=== PATIENT | female | born 1980 | race African-American/Black ===

== ENCOUNTER 2025-05-03 08:50 | Day surgery (SDC) | payer MEDICAID, SELFPAY ==
--- NOTE | 2025-04-30 07:00 | EKG_ITS ---
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
[2025-04-30 07:33] VITALS: BMI 34.3
[2025-04-30 08:38] LABS: Collection Type, Urine Clean Catch
[2025-04-30 08:59] LABS: Basophils # (Auto) 0.0 Thou/mm3 (0.0-0.2); Basophils % (Auto) 1 % (0-2.5); Eosinophils # (Auto) 0.1 Thou/mm3 (0.0-0.5); Eosinophils % (Auto) 3 % (0-10); Hematocrit 41.1 % (36.0-46.0); Hemoglobin 12.5 g/dL (12.0-16.0); Immature Granulocytes Auto 0.01 Thou/mm3 (0.00-0.00); Lymphocytes # (Auto) 1.5 Thou/mm3 (1.0-4.8); Lymphocytes % (Auto) 37 % (10-50); Mean Corpuscular HGB Conc 30.4 g/dl (31.0-37.0); Mean Corpuscular Hemoglobin 26.8 pg (25.0-35.0); Mean Corpuscular Volume 88 fL (80-100); Monocytes # (Auto) 0.5 Thou/mm3 (0.0-0.8); Monocytes % (Auto) 12 % (0-12); Neutrophils # (Auto) 1.9 Thou/mm3 (1.8-7.7); Neutrophils % (Auto) 47 % (37-80); Nucleated Red Blood Cell # 0.00 Thou/mm3 (0.00-0.00); Nucleated Red Blood Cell % 0 /100 WBC (0); Platelet Count 176 Thou/mm3 (140-440); RDW Standard Deviation 42.7 fL (36.4-46.3); Red Blood Count 4.67 Miln/mm3 (4.00-5.20); White Blood Count 4.0 Thou/mm3 (3.6-11.0)
[2025-04-30 09:01] LABS: Bacteria,Urine Rare; Bilirubin,Urine Negative (Negative); Blood,Urine 3+ (Negative); Glucose, Urine Negative (Negative); Ketones,Urine Negative (Negative); Leukocyte Esterase,Urine Negative (Negative); Nitrite,Urine Negative (Negative); PH,Urine 8.0 (5.0-7.0); Protein,Urine Trace (Neg - Trace); RBC,Urine 6 /hpf (0-3); Specific Gravity,Urine 1.022 (1.001-1.035); Squamous Epithelial Cell,Urine 15 /hpf (0-5); Urobilinogen,Urine Negative mg/dL (0.0-1.0); WBC,Urine 5 /hpf (0-5)
[2025-04-30 09:06] LABS: Partial Thromboplastin Time 27.3 Seconds (22.0-36.0)
[2025-04-30 09:15] LABS: Alanine Aminotransferase 8 U/L (10-49); Albumin, Serum 4.6 gm/dL (3.5-5.0); Albumin/Globulin Ratio 1.7 (1.2-2.2); Alkaline Phosphatase 61 U/L (46-116); Anion Gap 11 (7-16); Aspartate Amino Transferase 17 U/L (0-34); BUN/Creatinine Ratio 10 Ratio (12-20); Bilirubin,Total 1.2 mg/dL (0.3-1.2); Blood Urea Nitrogen 9 mg/dL (9-23); Calcium 9.5 mg/dL (8.3-10.6); Calcium (Corrected) 9.5 mg/dL (8.5-10.1); Carbon Dioxide 29.4 mMol/L (20.0-31.0); Chloride 102 mMol/L (98-107); Creatinine (Component) 0.9 mg/dL (0.6-1.3); Estimated Creatinine Clearance 71.5 mL/min (>60); Globulin 2.7 gm/dL (2.3-3.5); Glucose 104 mg/dL (74-106); Osmolality,Calculated 281 (275-295); Potassium 3.8 mMol/L (3.4-5.1); Sodium 142 mMol/L (136-145); Total Protein 7.3 gm/dL (5.7-8.2); eGFR > 60 See Note
[2025-04-30 09:18] LABS: Clarity,Urine Hazy (Clear/Hazy); Color,Urine Lt Yellow (Lt Yel-Yel)
[2025-05-03] VITALS (12 sets, daily range): BP systolic 95–131; BP diastolic 63–79; PULSE 62–88; RESP 12–20; TEMP 36.2–36.8; O2SAT 95–100
[2025-05-03] MEDS: RINGERS LACTATED 1000 ML 1,000 ML 60 ML IV (09:31)
--- NOTE | 2025-05-03 10:00 | SUR.PREOP ---
Patient expressed gratitude for prayer before their procedure.
--- NOTE | 2025-05-03 12:25 | SUR.PHASEI ---
1225 Patient arrived to recovery resting comfortably in [facility], on oxygen 6L via oxy mask with an oral airway and nasal airway in place, breathing unlabored, vital signs stable, dressing intact to abdomen; sutures, steri-strips, telfa, gauze, abd, medipore tape, abdominal binder, no bleeding noted, report received from Maynor GALLEGO and Dr. Mejia
--- NOTE | 2025-05-03 12:25 | ESOP_ITS ---
Date of Procedure 05/03/25 Pre Op Diagnosis Incarcerated umbilical hernia Post Op Diagnosis Same Procedure Repair of incarcerated umbilical hernia 15 cm x 7 cm with implantation of Ventrio ST oval patch and partial omentectomy on May 03, 2025 Findings This patient is a morbidly obese and she has a large ventral incarcerated hernia. The umbilical hernia contained omentum that required resection and lysis of adhesions. There is no other positive findings. Procedure Description Patient was examined in the preop area. Site and site were marked. Procedure was discussed with the patient in detail. The risk benefits alternatives were discussed with the patient and informed consent was obtained. The risks include bleeding infection recurrence of the hernia and anesthesia related risks. The patient was brought to the operating room and placed on the operating table in supine position. General anesthesia was administered in a satisfactory manner. IV antibiotics were given to the patient. Local anesthesia 0.25% Marcaine was used as an adjunct. Curvilinear vertical circumumbilical incision is made. This was deepened throug h the layers of skin subcutaneous tissue. The hernia sac was identified and was dissected around the umbilicus. Hernia sac was incised circumferentially, and the contents of the hernia sac were identified. There was omentum in the hernia sac, and this was adherent with the hernia sac and it is scarred down. Portion of the omentum was resected by suture ligation technique with resection of the scarred down omentum. Rest of the omentum was reduced. Lysis of adhesions was required to clear the adhesions on the peritoneal sides around the defect. Hernia sac was excised as specimen. The fascia is cleaned and then the defect is defined. I examined the fascia from the peritoneal side and there are no adhesions of the bowel or omentum. The defect measured 15 cm X 7 cm. It requires implantation of the 17 x [address] oval patch. The patch was implanted in the sublet position. The laps and instrument counts were obtained they are correct x 2 and then after that the patch is positioned underneath the defect. The patch was sutured circumferentially to the fascia with interrupted 0 Ethibond stitches of bringing the patches to the anterior abdominal wall. After completion of that the patch was irrigated with gentamicin solution. The hernia defect was then closed longitudinally with interrupted 0 Ethibond [id number] stitches incorporating the patch. The hemostasis was achieved and the defect was checked again and there is no fascial defect. The operative field is thoroughly irrigated with saline solution with gentamicin. The hernia sac toward the umbilical skin is trimmed. Umbilical skin is attached to the fascia with interrupted 3-0 Vicryl stitches so as to avoid floating umbilicus. After that subcutaneous tissue was approximated by 3- 0 Vicryl and skin by four 4-0 Monocryl subcuticular stitches. Steri-Strips are applied. Sterile dressing is applied. Patient tolerated the procedure very well. Complications none. Anesthesia GETA Drains None. Pathology / specimen Other (Umbilical hernia sac and omentum) Estimated Blood Loss 10 Condition Stable Disposition PACU Surgeon Ortiz Cronin MD Surgical Staff Operation Date: 05/03/25 11:15 Case Staff Anesthesiologist: Lui Mejia RNsocial studies teacher: Hina Davies surgical first assistant
[2025-05-03] MEDS: fentaNYL CIT INJ 50 mCg/ML AMP 2ML IVP (13:08)
--- NOTE | 2025-05-03 13:16 | SUR.PHASEII ---
1316 report given to Ester GALLEGO
--- NOTE | 2025-05-03 13:24 | SUR.PHASEI ---
Resting with eyes closed but responds to questions appropriately. Respirations even and unlabored. No c/o pain or discomfort. Abdominal binder in place C//D/I as well as dressing to mid abd.
--- NOTE | 2025-05-03 13:50 | SUR.PHASEII ---
1356 report received from Ester GALLEGO
--- NOTE | 2025-05-03 14:22 | SUR.PHASEII ---
1422 Patient meets discharge criteria from recovery, awake and talking with staff, breathing unlabored, vital signs stable, dressing intact; no bleeding noted, eating ice chips; denies nausea, denies pain at rest, discomfort with movement, assisted with dressing into her clothing by this keno writer / runner, discharge instructions given to patient and patients , signed discharge instructions. Patient given all her belongings prior to discharge, transported via wheelchair and left in a private vehicle.
== END 2025-05-03 14:22 | disposition home or self-care (01) ==
PROVIDERS: PCP Nurse Practitioner Family; Referring Provider Specialist; Visit Provider Specialist
PROC: (CPT 49596; principal; 2025-05-03 11:00)
DX: K42.0 Umbilical hernia with obstruction, without gangrene (principal); Z01.810 Encounter for preprocedural cardiovascular examination; R00.1 Bradycardia, unspecified; E66.01 Morbid (severe) obesity due to excess calories; Z68.34 Body mass index [BMI] 34.0-34.9, adult
CPT/HCPCS: 49596; 36415; 80053; 81001; 85025; 85730; 93005; A4217; A4649; C1781; J0131; J0694; J1100; J1580; J2371; J2704; J2710; J2765; J3010; J3490; J7030; J7120; A9270; J1596